=== PATIENT | female | born 1975 | race Caucasian/White ===

== ENCOUNTER 2017-10-10 08:13 | Day surgery (SDC) | payer OTHER ==
[~2017-10-10] VITALS: Ht 157.5 cm; Wt 66.2 kg
[2017-10-10 08:45] VITALS: BP 116/82
[2017-10-10 16:58] VITALS: BP 160/94
== END 2017-10-10 16:45 | disposition home or self-care (01) ==
LOC: DS 08:13 → NM 09:00 → DS 09:00 → MA 10:00 → OR 12:00 → DS 16:45
PROVIDERS: Surgery
PROC: 07B50ZZ Excision of Right Axillary Lymphatic, Open Approach (ICD-10-PCS; 2017-10-10)
PROC: 0HBT0ZZ Excision of Right Breast, Open Approach (ICD-10-PCS; principal; 2017-10-10 12:00)
DX: C50.211 Malignant neoplasm of upper-inner quadrant of right female breast (principal); C77.3 Secondary and unspecified malignant neoplasm of axilla and upper limb lymph nodes; Z17.1 Estrogen receptor negative status [ER-]; Z92.21 Personal history of antineoplastic chemotherapy
CPT/HCPCS: J1170; J2001; J3010; J3490; Q9968

== ENCOUNTER 2017-11-28 08:23 | Day surgery (SDC) | payer OTHER ==
[~2017-11-28] VITALS: Ht 157.5 cm; Wt 68.9 kg
[2017-11-28 08:45] VITALS: BP 127/78
[2017-11-28 12:48] VITALS: BP 123/68
== END 2017-11-28 12:45 | disposition home or self-care (01) ==
LOC: DS 08:23 → OR 10:00 → DS 12:45
PROVIDERS: Surgery
PROC: 0HBT0ZZ Excision of Right Breast, Open Approach (ICD-10-PCS; principal; 2017-11-28 10:00)
DX: T81.31XA Disruption of external operation (surgical) wound, not elsewhere classified, initial encounter (principal); C50.911 Malignant neoplasm of unspecified site of right female breast; C77.3 Secondary and unspecified malignant neoplasm of axilla and upper limb lymph nodes; I10 Essential (primary) hypertension; F31.9 Bipolar disorder, unspecified; F17.210 Nicotine dependence, cigarettes, uncomplicated; Z17.1 Estrogen receptor negative status [ER-]; Y83.8 Other surgical procedures as the cause of abnormal reaction of the patient, or of later complication, without mention of misadventure at the time of the procedure; Y92.009 Unspecified place in unspecified non-institutional (private) residence as the place of occurrence of the external cause
CPT/HCPCS: J2175; J2250; J2405; J2704; J3010; J3490; J7120